=== PATIENT | male | born 1940 | race Caucasian/White ===

== ENCOUNTER 2020-11-27 11:38 | Emergency (ER) | payer MEDICARE, OTHER ==
--- NOTE | 2020-11-27 13:17 | EDM.PDOC ---
ED HPI GENERAL MEDICAL PROBLEM - General Chief Complaint: Skin Complaint Stated Complaint: SHINGLES BY EYE Time Seen by Provider: 11/27/20 13:00 Source of Information: Reports: Patient History Limitations: Reports: Other (no old records) - History of Present Illness INITIAL COMMENTS - FREE TEXT/NARRATIVE: 80 yo male visiting from [facility] developed shingles about the time he left home. Over the past few days the shingles has progressed. He was seen recently in the local [facility] and was given an antiviral agent. Today Dr. Marrero who lives near where Octavio was visiting looked at the eye and told him he needed to come to the ER for an antibiotic. Patient has a pHx of CRF and says his pain is not bad. He has already been advised to seek ophthalmologic care regarding his R eye involvement. Onset: Gradual Duration: Day(s):, Getting Worse Location: Reports: Face Quality: Reports: Dull Severity: Mild Improves with: Reports: None Worsens with: Reports: Other (? time) Context: Reports: Other (See HPI) Associated Symptoms: Reports: No Other Symptoms Treatments MANAGER CORE: Reports: Other (see below) (valacyclovir) - Related Data Home Meds: Home Meds Erythromycin Base [Erythromycin 0.5% Ophth Oint] 1 applic OP Q6H #1 tube 11/27/20 [Rx] ED ROS GENERAL - Review of Systems Review Of Systems: See Below Constitutional: Reports: No Symptoms HEENT: Reports: Other (R eye red with swelling around the eye) Skin: Reports: Rash (rash R side of face and around the R eye consistent with shingles) Neurological: Reports: No Symptoms ED EXAM, SKIN/RASH Exam: See Below Exam Limited By: No Limitations General Appearance: Alert, WD/WN, No Apparent Distress Eye Exam: Right Eye: Conjunctival Injection (no purulent drainage), PERRL Ears: Normal External Exam, Normal Canal, Hearing Grossly Normal Nose: Normal Inspection, No Blood Throat/Mouth: Normal Lips, Normal Oropharynx, Normal Voice, No Airway Compromise Skin: Warm, Dry, Zoster-Like Rash (R face from posterior to the caodaism to the nose including the R eye) Location, Skin: Face Characteristics: Vesicular, Other (crusting of most of the lesions) Associated features: No: Warmth, Lymphangitis Course - Vital Signs Last Recorded V/S: Last Vital Signs Temp 36.6 C 11/27/20 13:02 Pulse 66 11/27/20 13:02 Resp 18 11/27/20 13:02 BP 162/80 H 11/27/20 13:02 Pulse Ox 98 11/27/20 13:02 Departure - Departure Time of Disposition: 13:20 Disposition: Home, Self-Care 01 Condition: Fair Clinical Impression: Shingles Qualifiers: Herpes zoster complications: with ocular involvement Herpes zoster ocular complication detail: conjunctivitis Qualified Code(s): B02.31 - Zoster conjunctivitis - Discharge Information *PRESCRIPTION DRUG MONITORING PROGRAM REVIEWED*: Not Applicable *COPY OF PRESCRIPTION DRUG MONITORING REPORT IN PATIENT [place]: Not Applicable Prescriptions: Erythromycin Base [Erythromycin 0.5% Ophth Oint] 1 applic OP Q6H #1 tube Referrals: PCP,None [Primary Care Provider] - Additional Instructions: Continue the shingles medicine. Add the erythromycin ointment as directed. See an manufacturing specialist steve to make sure that you do not have serious eye complications. Sepsis Event Note (ED) - Focused Exam Vital Signs: Vital Signs Temp Pulse Resp BP Pulse Ox 11/27/20 13:02 36.6 C 66 18 162/80 H 98
== END 2020-11-27 13:37 | disposition home or self-care (01) ==
LOC: JP.ED 11:38
DX: B02.31 Zoster conjunctivitis (principal)
CPT/HCPCS: 99282; 99283